=== PATIENT | female | born 1980 | race Caucasian/White ===

== ENCOUNTER 2017-10-27 08:47 | Emergency (ER) | payer BC ==
[~2017-10-27] VITALS: Ht 182.9 cm; Wt 61.0 kg
[~2017-10-27 08:47] MED LIST: METH500T PO
[2017-10-27] MEDS ORDERED: bacitracin 15gm ointment TP ONE (09:20)
[2017-10-27] MEDS ORDERED: LIDOcaine 1.5% w/epinephrine 1:200,000 5ml ampul IJ ONE (09:20)
[2017-10-27 09:45] VITALS: BP 105/58
== END 2017-10-27 10:10 | disposition home or self-care (01) ==
LOC: ER 08:48
DX: S01.81XA Laceration without foreign body of other part of head, initial encounter (principal); Z79.899 Other long term (current) drug therapy; W18.2XXA Fall in (into) shower or empty bathtub, initial encounter; Y93.89 Activity, other specified; Y92.89 Other specified places as the place of occurrence of the external cause; Y99.8 Other external cause status
CPT/HCPCS: 12013; 93005; 99284; A6449; J3490